=== PATIENT | male | born 1960 | race Caucasian/White ===

== ENCOUNTER → 2016-11-03 | Outpatient (REF) | payer BC ==
[~2016-11-03] MED LIST: ALEV220C2 PO; CLON-412 PO; CLON0.5T PO; CLON1TAB PO; FLUO20CA9 PO; FLUO40CA PO; GABA-283 PO; GABA300C3 PO; MIRT45TA PO; NAPR250T45 PO; NAPR375T2 PO; OLAN2.5T PO; QUET1TAB10 PO; QUET1TAB8 PO; REME30TA PO; SIMV20TA2 PO; TRAZ150T14 PO; VENL150C43 PO; VIAG100T PO; ZALE10CA PO
[2016-11-03 19:25] LABS: ALBUMIN 4.1 GM/DL (3.2-5.2); ALBUMIN/GLOBULIN RATIO 1.58 (1.00-1.93); ALKALINE PHOSPHATASE 63 U/L (45-117); ALT/SGPT 26 U/L (12-78); ANION GAP 7 MEQ/L (8-16); AST/SGOT 28 U/L (15-37); BILIRUBIN,TOTAL 0.3 MG/DL (0.2-1.0); BLOOD UREA NITROGEN 11 MG/DL (7-18); CARBON DIOXIDE LEVEL 30 MEQ/L (21-32); CHLORIDE LEVEL 108 MEQ/L (98-107); CHOLESTEROL LEVEL 162 MG/DL (<200); CREATININE FOR GFR 1.03 MG/DL (0.70-1.30); GLOMERULAR FILTRATION RATE > 60.0 (>56); GLUCOSE, FASTING 82 MG/DL (70-105); POTASSIUM SERUM 4.7 MEQ/L (3.5-5.1); SODIUM LEVEL 145 MEQ/L (136-145); TOTAL PROTEIN 6.7 GM/DL (6.4-8.2); TRIGLYCERIDES LEVEL 134 MG/DL (<150)
== END ==
LOC: M LABDRAW1 17:02
PROVIDERS: ATTEND Emergency Medicine
DX: E78.2 Mixed hyperlipidemia (principal)

== ENCOUNTER 2017-01-03 15:20 | Emergency (ER) | payer BC, OTHER ==
[~2017-01-03] VITALS: Ht 182.9 cm; Wt 77.1 kg
[~2017-01-03 15:20] MED LIST changes: +GABA-282 PO; -GABA300C3 PO
[2017-01-03] MEDS ORDERED: REXU1TAB4 PO (15:52)
[2017-01-03] MEDS ORDERED: QUET1TAB11 (15:52)
[2017-01-03] MEDS ORDERED: KLON2TAB (15:52)
[2017-01-03] MEDS ORDERED: ZALE10CA (15:52)
[2017-01-03] MEDS ORDERED: EFFE150C (15:52)
[2017-01-03] MEDS ORDERED: FLUO20CA9 (15:52)
[2017-01-03] MEDS ORDERED: NS 1,000 ML IV SCH (15:53)
[2017-01-03 16:03] LABS: BASO % 0.2 % (0.0-1.0); EOS # 0.1 K/mm3 (0.0-0.50); LARGE UNSTAINED CELL # 0.1 K/mm3 (0.0-0.4); LARGE UNSTAINED CELL % 0.6 % (0.0-4.0); LYMPH # 1.4 K/mm3 (1.5-4.5); LYMPH % 9.8 % (24.0-44.0); MEAN CORPUSCULAR HEMOGLOBIN 31.1 pg (27.0-33.0); MEAN CORPUSCULAR HGB CONC 31.8 g/dl (32.0-36.5); MEAN CORPUSCULAR VOLUME 97.6 fl (80.0-96.0); MONO # 0.9 K/mm3 (0.0-0.8); MONO % 6.2 % (0.0-5.0); NEUTROPHILS # 11.3 K/mm3 (1.8-7.7); NEUTROPHILS % 82.2 % (36.0-66.0); PLATELET COUNT, AUTOMATED 380 k/mm3 (150-450); RED CELL DISTRIBUTION WIDTH 13.9 % (11.5-14.5); WHITE BLOOD COUNT 13.8 K/mm3 (4.0-10.0)
[2017-01-03 16:35] LABS: ALBUMIN 3.3 GM/DL (3.2-5.2); ALBUMIN/GLOBULIN RATIO 0.87 (1.00-1.93); ALKALINE PHOSPHATASE 79 U/L (45-117); ALT/SGPT 28 U/L (12-78); ANION GAP 8 MEQ/L (8-16); AST/SGOT 23 U/L (15-37); BILIRUBIN,DIRECT < 0.1 MG/DL (0.0-0.2); BILIRUBIN,TOTAL 0.4 MG/DL (0.2-1.0); BLOOD UREA NITROGEN 14 MG/DL (7-18); CALCIUM LEVEL 8.2 MG/DL (8.5-10.1); CARBON DIOXIDE LEVEL 29 MEQ/L (21-32); CHLORIDE LEVEL 103 MEQ/L (98-107); GLOMERULAR FILTRATION RATE > 60.0 (>56); GLUCOSE, FASTING 132 MG/DL (70-105); POTASSIUM SERUM 3.8 MEQ/L (3.5-5.1); SODIUM LEVEL 140 MEQ/L (136-145); TOTAL PROTEIN 7.1 GM/DL (6.4-8.2)
[2017-01-03 17:49] LABS: METHADONE URINE NEGATIVE (NEGATIVE)
[2017-01-03 17:52] LABS: VENOUS BASE EXCESS 1.8 (-2.0-2.0); VENOUS O2 SATURATION 68.5 % (60.0-80.0); VENOUS PARTIAL PRESSURE O2 33.3 mmHg (30.0-50.0); VENOUS STANDARD HCO3 25.4 MEQ/L; VENOUS TOTAL CO2 29.3 MEQ/L (24.0-28.0)
[2017-01-03] MEDS ORDERED: NS 500 ML IV ONE (20:30)
--- NOTE | 2017-01-03 21:50 | ECGEPIP ---
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
[2017-01-03 23:27] VITALS: BP 107/58
== END 2017-01-03 23:43 | disposition home or self-care (01) ==
LOC: M ED 16:44
DX: F19.129 Other psychoactive substance abuse with intoxication, unspecified (principal); F33.9 Major depressive disorder, recurrent, unspecified; Z79.899 Other long term (current) drug therapy
CPT/HCPCS: 51701; 80048; 80076; 80306; 82550; 82803; 84443; 85025; 93005; 93041; 96360; 96361; 99285; G0480

== ENCOUNTER → 2017-08-30 | Outpatient (REF) | payer OTHER ==
[~2017-08-30] MED LIST changes: +EFFE150C; +FLUO20CA19; +FLUO20CA19 PO; -FLUO20CA9 PO; +KLON2TAB; +NAPR-855 PO; -NAPR375T2 PO; +QUET400T; +REXU1TAB4 PO; -TRAZ150T14 PO; +TRAZ1TAB14 PO; +ZALE10CA
[2017-08-30 13:35] LABS: BASO # 0.1 10^3/uL (0.0-0.2); BASO % 1.1 % (0.0-1.0); EOS # 0.9 10^3/uL (0.0-0.50); EOS % 9.8 % (0.0-3.0); IMMATURE GRANULOCYTE % 0.2 % (0-0); LYMPH # 2.9 10^3/uL (1.5-4.5); LYMPH % 32.4 % (24.0-44.0); MEAN CORPUSCULAR HEMOGLOBIN 32.1 pg (27.0-33.0); MEAN CORPUSCULAR HGB CONC 33.3 g/dl (32.0-36.5); MEAN CORPUSCULAR VOLUME 96.4 fl (80.0-96.0); MONO # 0.6 10^3/uL (0.0-0.8); NEUTROPHILS # 4.4 10^3/uL (1.8-7.7); NEUTROPHILS % 49.5 % (36.0-66.0); PLATELET COUNT, AUTOMATED 290 10^3/uL (150-450); RED CELL DISTRIBUTION WIDTH 13.2 % (11.5-14.5); WHITE BLOOD COUNT 8.9 10^3/uL (4.0-10.0)
[2017-08-30 14:01] LABS: ALBUMIN 3.8 GM/DL (3.2-5.2); ALBUMIN/GLOBULIN RATIO 1.19 (1.00-1.93); ALKALINE PHOSPHATASE 67 U/L (45-117); ALT/SGPT 47 U/L (12-78); ANION GAP 7 MEQ/L (8-16); AST/SGOT 32 U/L (7-37); BILIRUBIN,TOTAL 0.4 MG/DL (0.2-1.0); BLOOD UREA NITROGEN 17 MG/DL (7-18); CARBON DIOXIDE LEVEL 28 MEQ/L (21-32); CHLORIDE LEVEL 106 MEQ/L (98-107); CHOLESTEROL LEVEL 166 MG/DL (<200); CREATININE FOR GFR 0.92 MG/DL (0.70-1.30); FREE T4 1.09 NG/DL (0.76-1.46); GLOMERULAR FILTRATION RATE > 60.0 (>56); GLUCOSE, FASTING 95 MG/DL (70-105); POTASSIUM SERUM 4.6 MEQ/L (3.5-5.1); SODIUM LEVEL 141 MEQ/L (136-145); TRIGLYCERIDES LEVEL 132 MG/DL (<150)
== END ==
LOC: M LABDRAW1 10:04
PROVIDERS: ATTEND Emergency Medicine
DX: F33.2 Major depressive disorder, recurrent severe without psychotic features (principal); E78.2 Mixed hyperlipidemia

== ENCOUNTER → 2018-01-23 | Outpatient (REF) | payer OTHER ==
[2018-01-23 15:26] LABS: BASO # 0.1 10^3/uL (0.0-0.2); BASO % 1.1 % (0.0-1.0); EOS # 0.8 10^3/uL (0.0-0.50); EOS % 8.6 % (0.0-3.0); HEMATOCRIT 42.5 % (42.0-52.0); HEMOGLOBIN 14.2 g/dl (13.5-17.5); IMMATURE GRANULOCYTE % 0.4 % (0-3.0); LYMPH % 32.1 % (24.0-44.0); MEAN CORPUSCULAR HEMOGLOBIN 31.8 pg (27.0-33.0); MEAN CORPUSCULAR HGB CONC 33.4 g/dl (32.0-36.5); MEAN CORPUSCULAR VOLUME 95.3 fl (80.0-96.0); MONO # 0.6 10^3/uL (0.0-0.8); MONO % 6.4 % (0.0-5.0); NEUTROPHILS # 4.8 10^3/uL (1.8-7.7); NEUTROPHILS % 51.4 % (36.0-66.0); PLATELET COUNT, AUTOMATED 249 10^3/uL (150-450); RED BLOOD COUNT 4.46 10^6/uL (4.30-6.10); RED CELL DISTRIBUTION WIDTH 13.6 % (11.5-14.5); WHITE BLOOD COUNT 9.3 10^3/uL (4.0-10.0)
[2018-01-23 16:03] LABS: ALBUMIN 3.7 GM/DL (3.2-5.2); ALBUMIN/GLOBULIN RATIO 1.23 (1.00-1.93); ALKALINE PHOSPHATASE 77 U/L (45-117); ALT/SGPT 18 U/L (12-78); ANION GAP 6 MEQ/L (8-16); AST/SGOT 13 U/L (7-37); BILIRUBIN,TOTAL 0.3 MG/DL (0.2-1.0); BLOOD UREA NITROGEN 11 MG/DL (7-18); CALCIUM LEVEL 8.8 MG/DL (8.5-10.1); CARBON DIOXIDE LEVEL 28 MEQ/L (21-32); CHLORIDE LEVEL 111 MEQ/L (98-107); CREATININE FOR GFR 1.15 MG/DL (0.70-1.30); FREE T4 1.12 NG/DL (0.76-1.46); GLOMERULAR FILTRATION RATE > 60.0 (>56); GLUCOSE, FASTING 90 MG/DL (70-100); POTASSIUM SERUM 4.3 MEQ/L (3.5-5.1); SODIUM LEVEL 145 MEQ/L (136-145); THYROID STIMULATING HORMONE 0.854 uIU/ML (0.358-3.740); TOTAL PROTEIN 6.7 GM/DL (6.4-8.2)
[2018-01-23 16:19] LABS: TOTAL T3 68.7 NG/DL (60.0-181.0)
== END ==
LOC: M LABDRAW1 11:50
DX: F33.2 Major depressive disorder, recurrent severe without psychotic features (principal)

== ENCOUNTER → 2018-01-24 | Outpatient (REF) | payer OTHER ==
[2018-01-24 16:02] LABS: APPEARANCE, URINE CLEAR (CLEAR); BACTERIA, URINE AUTO NEGATIVE (NEGATIVE); BILIRUBIN, URINE AUTO NEGATIVE (NEGATIVE); BLOOD, URINE BLOOD 1+ (NEGATIVE); COLOR, URINE YELLOW (YELLOW); GLUCOSE, URINE (UA) AUTO NEGATIVE (NEGATIVE); KETONE, URINE AUTO NEGATIVE (NEGATIVE); LEUKOCYTE ESTERASE, URINE AUTO NEGATIVE (NEGATIVE); NITRITE, URINE AUTO NEGATIVE (NEGATIVE); PROTEIN, URINE AUTO NEGATIVE (NEGATIVE); RBC, URINE AUTO 0 /HPF (0-3); SPECIFIC GRAVITY URINE AUTO 1.004 (1.002-1.035); SQUAMOUS EPITHELIAL CELL UR AU 0 /HPF (0-6); UROBILINOGEN, URINE AUTO 0.2 mg/dL (0.0-2.0); WBC, URINE AUTO 0 /HPF (0-3)
== END ==
LOC: M LAB REF 15:53
DX: F33.2 Major depressive disorder, recurrent severe without psychotic features (principal)

== ENCOUNTER → 2018-04-29 | Outpatient (REF) | payer OTHER ==
[2018-04-29 16:38] LABS: ALBUMIN 3.9 GM/DL (3.2-5.2); ALBUMIN/GLOBULIN RATIO 1.18 (1.00-1.93); ALKALINE PHOSPHATASE 62 U/L (45-117); ALT/SGPT 20 U/L (12-78); ANION GAP 10 MEQ/L (8-16); AST/SGOT 12 U/L (7-37); BILIRUBIN,TOTAL 0.4 MG/DL (0.2-1.0); BLOOD UREA NITROGEN 9 MG/DL (7-18); CALCIUM LEVEL 9.5 MG/DL (8.5-10.1); CARBON DIOXIDE LEVEL 26 MEQ/L (21-32); CHLORIDE LEVEL 106 MEQ/L (98-107); CHOLESTEROL LEVEL 150 MG/DL (<200); CHOLESTEROL RISK RATIO 3.409 (<5); CREATININE FOR GFR 1.08 MG/DL (0.70-1.30); FREE T4 1.33 NG/DL (0.76-1.46); GLOMERULAR FILTRATION RATE > 60.0 (>56); GLUCOSE, FASTING 87 MG/DL (70-100); HDL CHOLESTEROL 44 MG/DL (>40); LDL CHOLESTEROL 81.8 MG/DL (<100); NON-HDL-C 106 MG/DL; POTASSIUM SERUM 4.2 MEQ/L (3.5-5.1); SODIUM LEVEL 142 MEQ/L (136-145); THYROID STIMULATING HORMONE 0.908 uIU/ML (0.358-3.740); TOTAL PROTEIN 7.2 GM/DL (6.4-8.2); TRIGLYCERIDES LEVEL 121 MG/DL (<150)
== END ==
LOC: M LABDRAW1 15:59
DX: E78.2 Mixed hyperlipidemia (principal); E03.9 Hypothyroidism, unspecified

== ENCOUNTER → 2018-05-20 | Outpatient (REF) | payer OTHER ==
[2018-05-23 00:07] LABS: NORTRIPTYLINE (AVENTYL) LEVEL 114 ng/mL (50-150)
== END ==
LOC: M LABDRAW1 09:37
DX: F33.3 Major depressive disorder, recurrent, severe with psychotic symptoms (principal)
CPT/HCPCS: 36415

== ENCOUNTER 2018-09-11 08:55 | Emergency (ER) | payer BC, OTHER ==
[2018-09-11] MEDS: NS 1,000 ML IV (09:41)
[2018-09-11 09:42] LABS: BASO # 0.1 10^3/uL (0.0-0.2); BASO % 0.7 % (0.0-1.0); EOS # 0.4 10^3/uL (0.0-0.50); EOS % 3.6 % (0.0-3.0); HEMATOCRIT 43.4 % (42.0-52.0); HEMOGLOBIN 15.1 g/dl (13.5-17.5); IMMATURE GRANULOCYTE % 0.4 % (0-3.0); LYMPH # 2.5 10^3/uL (1.5-4.5); LYMPH % 20.8 % (24.0-44.0); MEAN CORPUSCULAR HEMOGLOBIN 33.3 pg (27.0-33.0); MEAN CORPUSCULAR HGB CONC 34.8 g/dl (32.0-36.5); MEAN CORPUSCULAR VOLUME 95.8 fl (80.0-96.0); MONO % 8.7 % (0.0-5.0); NEUTROPHILS # 7.8 10^3/uL (1.8-7.7); NEUTROPHILS % 65.8 % (36.0-66.0); PLATELET COUNT, AUTOMATED 263 10^3/uL (150-450); RED BLOOD COUNT 4.53 10^6/uL (4.30-6.10); RED CELL DISTRIBUTION WIDTH 12.8 % (11.5-14.5); WHITE BLOOD COUNT 11.9 10^3/uL (4.0-10.0)
[2018-09-11] MEDS: ONDANSETRON 4MG/2ML VIAL (J2405) IV (09:42)
[2018-09-11] MEDS: MORPHINE 4 MG/ML 1ML VIAL/SYRINGE (J2270) IV ×2 (09:42→11:45)
[2018-09-11] MEDS ORDERED: ISOVUE-370 76% 100ML VIAL (Q9967) As Ordered (09:44)
[2018-09-11 10:00] LABS: AMORPHOUS SEDIMENT SMALL (NEGATIVE); APPEARANCE, URINE CLEAR (CLEAR); BACTERIA, URINE AUTO NEGATIVE (NEGATIVE); BILIRUBIN, URINE AUTO NEGATIVE (NEGATIVE); BLOOD, URINE BLOOD 2+ (NEGATIVE); COLOR, URINE YELLOW (YELLOW); GLUCOSE, URINE (UA) AUTO NEGATIVE (NEGATIVE); KETONE, URINE AUTO TRACE mg/dL (NEGATIVE); LEUKOCYTE ESTERASE, URINE AUTO NEGATIVE (NEGATIVE); MUCUS, URINE SMALL (NEGATIVE); NITRITE, URINE AUTO NEGATIVE (NEGATIVE); PROTEIN, URINE AUTO NEGATIVE (NEGATIVE); RBC, URINE AUTO 75 /HPF (0-3); SPECIFIC GRAVITY URINE AUTO 1.015 (1.002-1.035); SQUAMOUS EPITHELIAL CELL UR AU 0 /HPF (0-6); UROBILINOGEN, URINE AUTO 0.2 mg/dL (0.0-2.0); WBC, URINE AUTO 1 /HPF (0-3)
[2018-09-11 10:10] LABS: ALBUMIN 3.8 GM/DL (3.2-5.2); ALBUMIN/GLOBULIN RATIO 1.12 (1.00-1.93); ALKALINE PHOSPHATASE 59 U/L (45-117); ALT/SGPT 17 U/L (12-78); AMYLASE 46 U/L (25-115); ANION GAP 7 MEQ/L (8-16); AST/SGOT 13 U/L (7-37); BILIRUBIN,DIRECT 0.1 MG/DL (0.0-0.2); BILIRUBIN,TOTAL 0.6 MG/DL (0.2-1.0); BLOOD UREA NITROGEN 15 MG/DL (7-18); CALCIUM LEVEL 8.4 MG/DL (8.5-10.1); CARBON DIOXIDE LEVEL 26 MEQ/L (21-32); CHLORIDE LEVEL 106 MEQ/L (98-107); CREATININE FOR GFR 1.55 MG/DL (0.70-1.30); GLOMERULAR FILTRATION RATE 49.1 (>56); GLUCOSE, FASTING 123 MG/DL (70-100); LIPASE 77 U/L (73-393); POTASSIUM SERUM 3.6 MEQ/L (3.5-5.1); SODIUM LEVEL 139 MEQ/L (136-145); TOTAL PROTEIN 7.2 GM/DL (6.4-8.2)
[2018-09-11] MEDS: KETOROLAC 30 MG/ML VIAL (J1885) IV (12:17)
== END 2018-09-11 12:40 | disposition home or self-care (01) ==
LOC: M ED 08:55
DX: N13.30 Unspecified hydronephrosis (principal); N20.1 Calculus of ureter; R74.9 Abnormal serum enzyme level, unspecified; E78.00 Pure hypercholesterolemia, unspecified; F33.9 Major depressive disorder, recurrent, unspecified; F41.9 Anxiety disorder, unspecified; Z79.899 Other long term (current) drug therapy; F17.210 Nicotine dependence, cigarettes, uncomplicated
CPT/HCPCS: J2270

== ENCOUNTER → 2018-10-07 | Outpatient (CLI) | payer BC, OTHER ==
[~2018-10-07] MED LIST changes: +BACT800T5 PO; +BELS1TAB2 PO; -CLON0.5T PO; +CLON0.5T8 PO; -CLON1TAB PO; +CLON1TAB8 PO; -EFFE150C; +EFFE150C2; +FLOM0.4C39 PO; -GABA-282 PO; -GABA-283 PO; +GABA-843 PO; +GABA-845 PO; +IBUP-1022 PO; +KLON0.5T PO; +LEVO25TA5 PO; +LEVO50TA5 PO; -MIRT45TA PO; +MIRT45TA4 PO; +NAPR250T4 PO; -NAPR250T45 PO; +NAPR250T82 PO; +NORCOTAB PO; +NORT25CA2; +NORT25CA2 PO; +TYLE500T78 PO; +ZOFR4TAB14 PO
--- NOTE | 2018-10-16 07:01 | REP ---
Clinical: Kidney stone. Technique: Axial noncontrast images from the lung bases to the pubic symphysis with coronal and sagittal re-formations. Comparison: 09/11/2018. Findings: A 6 mm calculus is again identified in the left ureteropelvic junction causing proximal hydronephrosis. No further urinary tract calcifications or abnormalities are identified by noncontrast evaluation. Liver, spleen, pancreas, gallbladder, and bilateral adrenal glands are normal. The enteric system is without obstruction or acute inflammatory process. Scattered colonic and sigmoid diverticula noted without acute diverticulitis. Pelvis demonstrates normal bladder and age appropriate prostate/seminal vesicles. Small fat containing left inguinal hernia noted. No ascites. No adenopathy. No free air. Atherosclerotic changes to the aorta and vasculature without aneurysm. Musculoskeletal structures demonstrate degenerative changes without focal osseous abnormality. Lung bases demonstrate minimal linear scarring at the left base. Impression: 1. Continued evidence for obstructing 6 mm calculus in the left ureteropelvic junction causing proximal hydronephrosis. Remainder of the urinary tract system is normal. 2. Diverticulosis without acute diverticulitis. Electronically Signed by Frederick Bassett MD 10/16/2018 06:52 A
== END ==
LOC: M RAD 07:06
PROVIDERS: ATTEND Nurse Practitioner Family
DX: N20.0 Calculus of kidney (principal); K57.30 Diverticulosis of large intestine without perforation or abscess without bleeding

== ENCOUNTER → 2018-10-08 | Outpatient (CLI) | payer BC, OTHER ==
[2018-10-08 20:42] LABS: BLOOD UREA NITROGEN 15 MG/DL (7-18); CALCIUM LEVEL 9.8 MG/DL (8.5-10.1); CARBON DIOXIDE LEVEL 29 MEQ/L (21-32); CHLORIDE LEVEL 104 MEQ/L (98-107); CREATININE FOR GFR 1.18 MG/DL (0.70-1.30); GLOMERULAR FILTRATION RATE > 60.0 (>56); GLUCOSE, FASTING 87 MG/DL (70-100); POTASSIUM SERUM 4.5 MEQ/L (3.5-5.1); SODIUM LEVEL 140 MEQ/L (136-145)
[2018-10-08 20:51] LABS: APPEARANCE, URINE HAZY (CLEAR); BACTERIA, URINE AUTO NEGATIVE (NEGATIVE); BILIRUBIN, URINE AUTO NEGATIVE (NEGATIVE); BLOOD, URINE BLOOD 1+ (NEGATIVE); COLOR, URINE YELLOW (YELLOW); GLUCOSE, URINE (UA) AUTO NEGATIVE (NEGATIVE); KETONE, URINE AUTO NEGATIVE (NEGATIVE); LEUKOCYTE ESTERASE, URINE AUTO NEGATIVE (NEGATIVE); MUCUS, URINE SMALL (NEGATIVE); NITRITE, URINE AUTO NEGATIVE (NEGATIVE); PROTEIN, URINE AUTO NEGATIVE (NEGATIVE); RBC, URINE AUTO 15 /HPF (0-3); SPECIFIC GRAVITY URINE AUTO 1.014 (1.002-1.035); SQUAMOUS EPITHELIAL CELL UR AU 0 /HPF (0-6); UROBILINOGEN, URINE AUTO 0.2 mg/dL (0.0-2.0); WBC, URINE AUTO 0 /HPF (0-3)
[2018-10-08 21:17] LABS: HEMATOCRIT 46.1 % (42.0-52.0); HEMOGLOBIN 15.4 g/dl (13.5-17.5); MEAN CORPUSCULAR HEMOGLOBIN 32.8 pg (27.0-33.0); MEAN CORPUSCULAR HGB CONC 33.4 g/dl (32.0-36.5); MEAN CORPUSCULAR VOLUME 98.1 fl (80.0-96.0); PLATELET COUNT, AUTOMATED 302 10^3/uL (150-450); WHITE BLOOD COUNT 13.1 10^3/uL (4.0-10.0)
[2018-10-08 21:22] LABS: INR 0.94; PROTHROMBIN TIME 12.6 SECONDS (12.1-14.4)
[2018-10-08 21:23] LABS: PARTIAL THROMBOPLASTIN TIME 31.2 SECONDS (25.4-37.6)
--- NOTE | 2018-10-09 02:41 | REP ---
Clinical: Preoperative assessment. Nephrolithiasis . Comparison: 08/30/2017 . Technique: PA and lateral. Findings: The mediastinum and cardiac silhouette are normal. The lung muse are clear and without acute consolidation, effusion, or pneumothorax. The skeletal structures are intact and normal. Old healed right rib fracture. Impression: 1. No acute cardiopulmonary process. Electronically Signed by Frederick Bassett MD 10/09/2018 02:33 A
== END ==
LOC: M SMT 14:41
PROVIDERS: ATTEND Nurse Practitioner Family
DX: Z01.818 Encounter for other preprocedural examination (principal); N20.0 Calculus of kidney

== ENCOUNTER → 2018-10-10 | Outpatient (CLI) | payer BC, OTHER ==
--- NOTE | 2018-10-11 03:35 | REP ---
Clinical: Left ureteral stone. Technique: Two supine views of the abdomen and pelvis. Findings: 7 mm calcification just lateral to the left L2 transverse process consistent with the given history of ureteral stone. Further evaluation of the urinary tract system is limited due to overlying bowel gas and technique. No bowel obstruction. No organomegaly. Skeletal structures normal for age. Small phleboliths noted in the pelvis. Impression: 7 mm Proximal left ureteral calculus. Electronically Signed by Frederick Bassett MD 10/11/2018 03:28 A
== END ==
LOC: M RAD 16:19
PROVIDERS: ATTEND Urology Pediatric Urology
DX: N20.1 Calculus of ureter (principal)

== ENCOUNTER 2018-10-14 09:02 | Day surgery (SDC) | payer BC, OTHER ==
[~2018-10-14] VITALS: Ht 182.9 cm; Wt 80.6 kg
[~2018-10-14 09:02] MED LIST changes: -BACT800T5 PO; -TYLE500T78 PO
[2018-10-14] MEDS ORDERED: PIPERACILLIN/TAZOBACTAM SOD 3.375 GM in D5W MINI-BAG PLUS 50 ML IV ONE (09:15)
[2018-10-14] MEDS ORDERED: LR 1,000 ML IV ONE (09:15)
[2018-10-14] MEDS ORDERED: ONDANSETRON 4MG/2ML VIAL (J2405) As Ordered ONE (10:12)
[2018-10-14] MEDS ORDERED: METOCLOPRAMIDE INJ 10MG/2ML VIAL (J2765) As Ordered ONE (10:12)
[2018-10-14] MEDS ORDERED: LIDOCAINE 2% INJ 100 MG/5 ML SDV (FOR ANES.) As Ordered ONE (10:12)
[2018-10-14] MEDS ORDERED: PROPOFOL 200 MG/20 ML VIAL As Ordered ONE ×2 (10:12→13:08)
[2018-10-14] MEDS ORDERED: fentaNYL 100 MCG/2 ML INJECTION (J3010) As Ordered ONE ×2 (10:13→12:23)
[2018-10-14] MEDS ORDERED: MIDAZOLAM INJ 2 MG/2 ML VIAL (J2250) As Ordered ONE (10:13)
[2018-10-14] MEDS ORDERED: CONRAY-60 60% 50ML VIAL (Q9961) As Ordered ONE ×2 (11:29→13:03)
[2018-10-14] MEDS ORDERED: LIDOCAINE 2% 5ML JELLY UROJET As Ordered ONE (11:29)
--- NOTE | 2018-10-14 13:28 | ROOPDOC ---
[facility] Report Of Operation Report of Operation DATE OF PROCEDURE: 10/14/18 PREPROCEDURE DIAGNOSES:left ureteral stone (proximal) POSTPROCEDURE DIAGNOSES: same. PROCEDURE: left retrograde pyelogram, balloon dilation (12f x10cm), semi rigid ureteroscopy, laser lithotripsy, flexible ureteroscopy, stone basketing, stent placement SURGEON: Shawna Julian MD MPH INDIGO ANESTHESIA: GET (Dr. Bond). ESTIMATED BLOOD LOSS: Approximately <10 mL. COMPLICATIONS: none. REMARKS/FINDINGS: 1. left ureteral stone, proximal, sent for stone analysis 2. left ureteral clot 3. stent 7f [id number] stent 4. midline cystocele (unusual for a male) 5. normal retrograde on left reflect filling defect in the proximal ureter DESCRIPTION OF PROCEDURE: After informed consent pt was taken to the operating room where routine time out was performed for all care stakeholders, who were in agreement. The patient was placed in lithotomy position, prepped and draped and 21 f cystoscope was introduced into the bladder. The open ended ureteral catheter was placed into the left ureter retrograde revealed findings above. The motion hybrid wire was placed up the ureter into the renal pelvis. The 12f x 10cm balloon dilator was placed over the wire to distend the distal ureter for 5min. After desufflating the balloon 5min later then the semi rigid ureteroscope was introduced along side the wire up the ureter and the 0 tip nitinol stone basket was introduced once reached the proximal stone. The ureteroscope was not long enough, so it was exchanged for longer semi rigid. The stone was not central so a second motion guide wire was placed up the semi rigid scope after completing retrograde pyelogram through the scope. The ureteral access sheath was placed up the ureter over a 2nd motion wire along side of the safety wire already in place. A flexible ureteroscope to be introduce up the access sheath. A 365 laser fiber was introduced once ureteroscope reached the proximal ureteral stone. The laser was set to 10 mendoza (1j and 10hz). Once the stone was broken to smaller pieces, the nitinol 0 tip basket was used to remove stone fragments which were collected and sent for stone analysis. A new retrograde was performed using a open ended catheter and the stent 7f x 22-30cm was placed over the wire. The 21f cystoscope was used to perform repeat cystoscopy. The lower stent curl and string could be seen in the bladder and upper curl was seen with flouroscopy. Findings as above. The string was secured to the penis glans using Mastisol, steri strips and Tegaderm. The patient tolerated the procedure well and was taken to the recovery room in excellent condition. Shawna Julian MD MPH INDIGO. Shawna Julian MD Oct 14, 2018 13:28
[2018-10-14] MEDS ORDERED: PERCOCET 5MG/325MG TAB As Ordered ONE (13:34)
[2018-10-14] MEDS: PERCOCET 5MG/325MG TAB PO PRN ×2 (13:35→14:11)
[2018-10-14] MEDS ORDERED: TYLE500T78 PO (13:35)
[2018-10-14] MEDS ORDERED: BACT800T5 PO (13:35)
[2018-10-14] MEDS ORDERED: ONDANSETRON 4MG/2ML VIAL (J2405) IV PRN (14:00)
[2018-10-14] MEDS ORDERED: LR 1,000 ML IV SCH (14:00)
--- NOTE | 2018-10-14 14:10 | REP ---
Retrograde pyelogram: Three views: History: Nephrolithiasis. 38 seconds of fluoroscopy time was reported. Findings: A sequence of three last image hold fluoroscopically obtained spot radiographs of the abdomen document ureteral cannulation, contrast injection, and double pigtail stent placement. No laterality markers are visible. Electronically Signed by Jose Pace MD 10/14/2018 08:18 P
[2018-10-14 15:00] VITALS: BP 154/79
[2018-10-19 00:07] LABS: COMMENT Note: (.); Ca Ox Monohydrate 95 % (.)
== END 2018-10-14 15:05 | disposition home or self-care (01) ==
LOC: M SDC 09:02
PROVIDERS: ATTEND Urology Pediatric Urology
DX: N20.1 Calculus of ureter (principal); N28.89 Other specified disorders of kidney and ureter; N32.89 Other specified disorders of bladder; E78.00 Pure hypercholesterolemia, unspecified; R01.1 Cardiac murmur, unspecified; E04.1 Nontoxic single thyroid nodule; M12.9 Arthropathy, unspecified; F32.9 Major depressive disorder, single episode, unspecified; F41.9 Anxiety disorder, unspecified; Z79.899 Other long term (current) drug therapy; Z87.891 Personal history of nicotine dependence

== ENCOUNTER → 2018-11-04 | Outpatient (REF) | payer OTHER ==
[~2018-11-04] MED LIST changes: +BACT800T5 PO; +TYLE500T78 PO
== END ==
LOC: M LABDRAW1 15:46 → M SMT 15:46
PROVIDERS: ATTEND Nurse Practitioner Family
DX: Z12.5 Encounter for screening for malignant neoplasm of prostate (principal)
CPT/HCPCS: 36415; G0103

== ENCOUNTER → 2018-11-18 | Outpatient (CLI) | payer BC, OTHER ==
--- NOTE | 2018-11-20 07:49 | REP ---
Clinical: History of ureteral stricture. Technique: Real time euceda scale and color Doppler ultrasound examination using curved array transducer. Findings: The right kidney is normal in contour, size, echogenicity, and vascularity with normal intrarenal wave patterns and velocities; RI = 0.69. No hydronephrosis, definite nephrolithiasis, cystic or renal mass lesion appreciated. Right kidney measures 9.5 x 6.7 x 6.3 cm. The left kidney is normal in contour, size, echogenicity, and vascularity with normal intrarenal wave patterns and velocities; RI 0.65. Moderate hydronephrosis and proximal hydroureter is appreciated without obvious nephrolithiasis, cystic or renal mass lesion. Left kidney measures 10.6 x 7.0 x 6.5 cm. Bladder is normal in appearance with left ureteral jet noted during examination. The prostate gland is heterogeneous and measures 3.7 x 3.1 x 3.5 cm. Impression: 1. Moderate left-sided hydronephrosis. A left ureteral jet is identified within the bladder excluding ureteral obstruction. 2. Normal right kidney. Electronically Signed by Frederick Bassett MD 11/20/2018 07:40 A
== END ==
LOC: M RAD 14:03
PROVIDERS: ATTEND Nurse Practitioner Family
DX: N13.5 Crossing vessel and stricture of ureter without hydronephrosis (principal)

== ENCOUNTER → 2018-11-28 | Outpatient (CLI) | payer BC, OTHER ==
[~2018-11-28] MED LIST changes: +NAPR-50 PO; +NORT50CA PO; +TRAZ-163 PO; +ZOFR4TAB16 PO
[2018-11-28 13:41] LABS: HEMATOCRIT 41.7 % (42.0-52.0); HEMOGLOBIN 13.5 g/dl (13.5-17.5); MEAN CORPUSCULAR HEMOGLOBIN 31.8 pg (27.0-33.0); MEAN CORPUSCULAR HGB CONC 32.4 g/dl (32.0-36.5); MEAN CORPUSCULAR VOLUME 98.1 fl (80.0-96.0); PLATELET COUNT, AUTOMATED 496 10^3/uL (150-450); RED BLOOD COUNT 4.25 10^6/uL (4.30-6.10); WHITE BLOOD COUNT 12.2 10^3/uL (4.0-10.0)
[2018-11-28 13:45] LABS: APPEARANCE, URINE CLEAR (CLEAR); BACTERIA, URINE AUTO NEGATIVE (NEGATIVE); BILIRUBIN, URINE AUTO NEGATIVE (NEGATIVE); BLOOD, URINE BLOOD 1+ (NEGATIVE); COLOR, URINE YELLOW (YELLOW); GLUCOSE, URINE (UA) AUTO NEGATIVE (NEGATIVE); KETONE, URINE AUTO NEGATIVE (NEGATIVE); LEUKOCYTE ESTERASE, URINE AUTO NEGATIVE (NEGATIVE); MUCUS, URINE SMALL (NEGATIVE); NITRITE, URINE AUTO NEGATIVE (NEGATIVE); PROTEIN, URINE AUTO NEGATIVE (NEGATIVE); RBC, URINE AUTO 6 /HPF (0-3); SPECIFIC GRAVITY URINE AUTO 1.016 (1.002-1.035); SQUAMOUS EPITHELIAL CELL UR AU 0 /HPF (0-6); UROBILINOGEN, URINE AUTO 0.2 mg/dL (0.0-2.0); WBC, URINE AUTO 0 /HPF (0-3)
[2018-11-28 13:51] LABS: BLOOD UREA NITROGEN 14 MG/DL (7-18); CALCIUM LEVEL 8.7 MG/DL (8.5-10.1); CARBON DIOXIDE LEVEL 26 MEQ/L (21-32); CHLORIDE LEVEL 104 MEQ/L (98-107); CREATININE FOR GFR 0.95 MG/DL (0.70-1.30); GLOMERULAR FILTRATION RATE > 60.0 (>56); GLUCOSE, FASTING 113 MG/DL (70-100); POTASSIUM SERUM 4.8 MEQ/L (3.5-5.1); SODIUM LEVEL 139 MEQ/L (136-145)
[2018-11-28 13:55] LABS: PROTHROMBIN TIME 13.3 SECONDS (12.1-14.4)
[2018-11-28 13:56] LABS: PARTIAL THROMBOPLASTIN TIME 32.5 SECONDS (25.4-37.6)
== END ==
LOC: M SMT 10:14
PROVIDERS: ATTEND Nurse Practitioner Family
DX: Z01.818 Encounter for other preprocedural examination (principal); N13.5 Crossing vessel and stricture of ureter without hydronephrosis

== ENCOUNTER 2018-12-02 11:45 | Day surgery (SDC) | payer BC, OTHER ==
[~2018-12-02] VITALS: Ht 182.9 cm; Wt 80.3 kg
[2018-12-02] MEDS ORDERED: PROPOFOL 200 MG/20 ML VIAL As Ordered ONE ×2 (12:22→13:33)
[2018-12-02] MEDS ORDERED: LIDOCAINE 2% INJ 100 MG/5 ML SDV (FOR ANES.) As Ordered ONE (12:22)
[2018-12-02] MEDS ORDERED: fentaNYL 100 MCG/2 ML INJECTION (J3010) As Ordered ONE ×2 (12:23→13:52)
[2018-12-02] MEDS ORDERED: MIDAZOLAM INJ 2 MG/2 ML VIAL (J2250) As Ordered ONE (12:23)
[2018-12-02] MEDS ORDERED: CONRAY-60 60% 50ML VIAL (Q9961) As Ordered ONE (12:25)
[2018-12-02] MEDS ORDERED: BELS1TAB2 PO (12:32)
[2018-12-02] MEDS ORDERED: ceFAZolin 2 GM/D5W 50 ML IV BAG (J0690 PER 500MG) As Ordered ONE (12:33)
[2018-12-02] MEDS ORDERED: dexameTHASONE 4 MG/ML 1ML VIAL (J1100) As Ordered ONE (13:08)
[2018-12-02] MEDS ORDERED: ONDANSETRON 4MG/2ML VIAL (J2405) As Ordered ONE ×2 (13:21→13:33)
[2018-12-02] MEDS ORDERED: SUCCINYLCHOLINE 100 MG/5 ML SYRINGE (J0330) As Ordered ONE (13:33)
[2018-12-02] MEDS ORDERED: PERCOCET 5MG/325MG TAB As Ordered ONE (13:52)
[2018-12-02] MEDS: fentaNYL 100 MCG/2 ML INJECTION (J3010) IV PRN ×4 (13:55→14:10)
[2018-12-02] MEDS: PERCOCET 5MG/325MG TAB PO PRN ×2 (13:55→14:25)
[2018-12-02] MEDS ORDERED: LR 1,000 ML IV SCH (14:00)
[2018-12-02] MEDS ORDERED: PERCOCET 5MG/325MG TAB PO PRN (14:00)
[2018-12-02] MEDS ORDERED: ONDANSETRON 4MG/2ML VIAL (J2405) IV PRN (14:00)
--- NOTE | 2018-12-02 14:09 | REP ---
C-ARM VIEWS DURING LEFT RETROGRADE PYELOGRAM: Five C-arm views are performed. Wire is seen in the left ureter. Contrast partially opacifies the left ureter and pelvicalyceal system. 17 seconds fluoroscopy time utilized. Electronically Signed by Josh Nash MD 12/03/2018 10:09 A
[2018-12-02 14:50] VITALS: BP 122/82
[2018-12-02] MEDS ORDERED: KETOROLAC 30 MG/ML VIAL (J1885) As Ordered ONE (15:01)
[2018-12-02] MEDS ORDERED: KETOROLAC 30 MG/ML VIAL (J1885) IV ONE (15:15)
--- NOTE | 2018-12-03 07:54 | RO ---
DATE OF PROCEDURE: 12/02/2018 PREPROCEDURE DIAGNOSIS: Left ureteral obstruction. POSTPROCEDURE DIAGNOSIS: Left ureteral obstruction. PROCEDURE: Cystoscopy, left ureteroscopy, left retrograde pyelogram with intraoperative interpretation of images. SURGEON: Dr. Adams Lu JAVA SOFTWARE: None. ANESTHESIA: General. OPERATIVE INDICATIONS: This is a 58-year-old male who underwent a cystoscopy with left ureteroscopy and removal of stone as well as balloon dilation a little over a month ago. After his stent was removed an ultrasound was performed and notable for persistent moderate left hydronephrosis raising the concern for persistent left ureteral stricture. He ws brought to the operating room today to investigate this. DESCRIPTION OF PROCEDURE: Patient was brought to the operating room, and general anesthesia was induced. Prophylactic antibiotics were infused. He was then placed in the dorsal lithotomy position and prepped and draped in the usual sterile fashion. A rigid cystoscope was inserted into the urethral meatus and advanced into the bladder. Once within the bladder, a guidewire was advanced up the left collecting system. I then went up the left ureter with a short semirigid ureteroscope and examined the ureter all the way up to the ureteropelvic junction and no areas of narrowing were seen. A retrograde pyelogram was performed and was notable for left mild left hydroureteronephrosis and no extravasation. At this point, I withdrew the ureteroscope and examined the ureteral orifice for efflux. I did this for several minutes. The ureteral orifice effluxed very easily and contrast washed out of the left collecting system within a matter of a minute or two. This demonstrated that the left kidney was not obstructed. I therefore did not do a balloon dilatation or endopyelotomy. I also did not leave a stent because of this. At this point, the wires were removed and the bladder emptied of all fluids. This marked the conclusion of the procedure. The patient was then taken out of dorsal lithotomy position, awakened from anesthesia and transferred from the recovery room in stable condition. ESTIMATED BLOOD LOSS: Less than 5 mL. COMPLICATIONS: None. SPECIMENS: None. PLAN: The patient will followup in the clinic for a postoperative visit. VERONICA
== END 2018-12-02 15:37 | disposition home or self-care (01) ==
LOC: M SDC 11:45
PROVIDERS: ATTEND Urology
DX: N13.5 Crossing vessel and stricture of ureter without hydronephrosis (principal); E78.5 Hyperlipidemia, unspecified; R01.1 Cardiac murmur, unspecified; E04.1 Nontoxic single thyroid nodule; F32.9 Major depressive disorder, single episode, unspecified; F41.9 Anxiety disorder, unspecified; Z87.891 Personal history of nicotine dependence; Z79.899 Other long term (current) drug therapy
CPT/HCPCS: 52005; 74420; C1769; J0330; J0690; J1100; J1885; J2250; J2405; J3010; Q9961

== ENCOUNTER → 2019-01-24 | Outpatient (REF) | payer BC, OTHER ==
[~2019-01-24] MED LIST changes: +HYDR-3715 PO; -NAPR-50 PO; +NAPR-837 PO; -NORCOTAB PO; -OLAN2.5T PO; +OLAN2.5T25 PO
[2019-01-24 14:40] LABS: ALBUMIN 4.2 GM/DL (3.2-5.2); ALT/SGPT 21 U/L (12-78); BILIRUBIN,TOTAL 0.4 MG/DL (0.2-1.0); BLOOD UREA NITROGEN 28 MG/DL (7-18); CALCIUM LEVEL 8.7 MG/DL (8.5-10.1); CARBON DIOXIDE LEVEL 28 MEQ/L (21-32); CHLORIDE LEVEL 110 MEQ/L (98-107); CHOLESTEROL LEVEL 191 MG/DL (<200); CHOLESTEROL RISK RATIO 4.152 (<5); CREATININE FOR GFR 1.12 MG/DL (0.70-1.30); FREE T4 1.23 NG/DL (0.76-1.46); GLOMERULAR FILTRATION RATE > 60.0 (>56); GLUCOSE, FASTING 103 MG/DL (70-100); HDL CHOLESTEROL 46 MG/DL (>40); LDL CHOLESTEROL 108 MG/DL (<100); NON-HDL-C 145 MG/DL; POTASSIUM SERUM 4.4 MEQ/L (3.5-5.1); SODIUM LEVEL 144 MEQ/L (136-145); TOTAL PROTEIN 6.8 GM/DL (6.4-8.2); TRIGLYCERIDES LEVEL 183 MG/DL (<150)
== END ==
LOC: M LABDRAW1 10:56
PROVIDERS: ATTEND Physician Assistant Medical
DX: E78.2 Mixed hyperlipidemia (principal); E03.9 Hypothyroidism, unspecified

== ENCOUNTER 2019-04-11 20:25 | Emergency (ER) | payer BC, OTHER ==
[~2019-04-11] VITALS: Ht 182.9 cm; Wt 78.2 kg
[2019-04-11 20:58] LABS: BASO # 0.1 10^3/uL (0.0-0.2); BASO % 0.9 % (0.0-1.0); EOS # 0.4 10^3/uL (0.0-0.50); EOS % 3.4 % (0.0-3.0); HEMATOCRIT 42.5 % (42.0-52.0); HEMOGLOBIN 14.6 g/dl (13.5-17.5); LYMPH % 34.7 % (24.0-44.0); MEAN CORPUSCULAR HEMOGLOBIN 33.3 pg (27.0-33.0); MEAN CORPUSCULAR HGB CONC 34.4 g/dl (32.0-36.5); MONO # 0.7 10^3/uL (0.0-0.8); MONO % 5.9 % (0.0-5.0); NEUTROPHILS # 6.3 10^3/uL (1.8-7.7); NEUTROPHILS % 54.8 % (36.0-66.0); PLATELET COUNT, AUTOMATED 309 10^3/uL (150-450); RED BLOOD COUNT 4.38 10^6/uL (4.30-6.10); WHITE BLOOD COUNT 11.5 10^3/uL (4.0-10.0)
[2019-04-11 21:09] LABS: INR 0.96; PROTHROMBIN TIME 12.5 SECONDS (11.8-14.0)
[2019-04-11 21:10] LABS: PARTIAL THROMBOPLASTIN TIME 26.4 SECONDS (25.0-38.4)
--- NOTE | 2019-04-11 21:12 | REPVR ---
EXAM: CT Head Without Contrast EXAM DATE/TIME: 04/11/2019 8:46 PM CLINICAL HISTORY: 58 years old, male; Injury or trauma; Fall; Initial encounter; Blunt trauma (contusions or hematomas) TECHNIQUE: Imaging protocol: Axial computed tomography images of the head without contrast. Radiation optimization: All CT scans at this facility use at least one of these dose optimization techniques: automated exposure control; mA and/or kV adjustment per patient size (includes targeted exams where dose is matched to clinical indication); or iterative reconstruction. COMPARISON: No relevant prior studies available. FINDINGS: Brain: Patchy areas of hypoattenuation in the periventricular and subcortical white matter, consistent with chronic small vessel ischemic disease. Focal, well-circumscribed hypodensities in the basal ganglia, consistent with chronic lacunar infarcts. No CT evidence of acute intracranial hemorrhage or acute territorial infarction. No significant mass effect or midline shift. Basal cisterns patent. Ventricles: Prominence of the cortical sulci, cisterns and ventricular system, consistent with cerebral and cerebellar volume loss. Bones/joints: No acute osseous abnormality. Sinuses: Mild to moderate mucosal thickening of the ethmoid air cells and paranasal sinuses. Mastoid air cells: Grossly unremarkable. Soft tissues: Grossly unremarkable. Vasculature: Calcific atherosclerotic disease in the cavernous internal carotid arteries. IMPRESSION: 1. No CT evidence of acute intracranial pathology. 2. Additional findings, as above. Electronically signed by: Conor Dumont On 04/11/2019 21:12:28 PM
[2019-04-11 21:23] LABS: ALBUMIN 4.2 GM/DL (3.2-5.2); ALT/SGPT 29 U/L (12-78); BILIRUBIN,DIRECT < 0.1 MG/DL (0.0-0.2); BILIRUBIN,TOTAL 0.2 MG/DL (0.2-1.0); BLOOD UREA NITROGEN 11 MG/DL (7-18); CALCIUM LEVEL 8.8 MG/DL (8.5-10.1); CARBON DIOXIDE LEVEL 22 MEQ/L (21-32); CHLORIDE LEVEL 107 MEQ/L (98-107); CK-MB VALUE MASS 1.3 NG/ML (<3.6); CPK CREATINE PHOSPHOKINASE 112 U/L (39-308); CREATININE FOR GFR 1.12 MG/DL (0.70-1.30); GLOMERULAR FILTRATION RATE > 60.0 (>56); GLUCOSE, FASTING 103 MG/DL (70-100); MB/CK RELATIVE INDEX 1.16 (< OR =4); NT-PRO BNP 245 PG/ML (<125); POTASSIUM SERUM 3.8 MEQ/L (3.5-5.1); SODIUM LEVEL 141 MEQ/L (136-145); TOTAL PROTEIN 7.4 GM/DL (6.4-8.2); TROPONIN I < 0.02 NG/ML (< 0.10)
--- NOTE | 2019-04-11 21:25 | REPVR ---
EXAM: CT Cervical Spine Without Contrast EXAM DATE/TIME: 04/11/2019 8:46 PM CLINICAL HISTORY: 58 years old, male; Injury or trauma; Fall; Initial encounter; Blunt trauma TECHNIQUE: Imaging protocol: Axial computed tomography images of the cervical spine without contrast. Coronal and sagittal reformatted images were created and reviewed. Radiation optimization: All CT scans at this facility use at least one of these dose optimization techniques: automated exposure control; mA and/or kV adjustment per patient size (includes targeted exams where dose is matched to clinical indication); or iterative reconstruction. COMPARISON: No relevant prior studies available. FINDINGS: Vertebrae: Normal cervical lordosis. Dextroscoliosis. Mild retrolisthesis of C4 on C5. Alignment otherwise anatomic. No CT evidence of acute fracture, dislocation or subluxation. Vertebral body heights maintained. Discs/Spinal canal/Neural foramina: Mild multilevel degenerative changes, characterized by disc space narrowing, osteophytosis and uncovertebral and facet joint hypertrophy. Mild multilevel spinal canal and neural foraminal narrowing. Soft tissues: Grossly unremarkable. Lungs: Biapical pleural thickening and paraseptal emphysematous change. IMPRESSION: 1. No CT evidence of acute cervical spine traumatic injury. 2. Additional findings, as above. Electronically signed by: Conor Dumont On 04/11/2019 21:24:53 PM
[2019-04-11 21:41] LABS: ETHYL ALCOHOL (ETHANOL) 0.076 % (0.000-0.010)
[2019-04-11] MEDS ORDERED: NS 1,000 ML IV SCH (22:00)
[2019-04-11] MEDS: METOPROLOL 5 MG/5 ML VIAL IV SCH ×3 (22:05→22:10)
[2019-04-11] MEDS ORDERED: ASPIRIN 81 MG CHEW TABLET PO ONE (22:30)
[2019-04-11 22:34] LABS: MAGNESIUM LEVEL 2.1 MG/DL (1.8-2.4)
[2019-04-11] MEDS ORDERED: DIGO0.25 PO (23:13)
[2019-04-11] MEDS ORDERED: ASPI81CH33 PO (23:13)
[2019-04-11] MEDS ORDERED: DIGOXIN 0.25 MG TAB PO ONE (23:15)
[2019-04-12 03:22] LABS: CK-MB VALUE MASS 1.2 NG/ML (<3.6); CPK CREATINE PHOSPHOKINASE 145 U/L (39-308); MB/CK RELATIVE INDEX 0.83 (< OR =4); TROPONIN I < 0.02 NG/ML (< 0.10)
[2019-04-12 03:47] VITALS: BP 114/68
--- NOTE | 2019-04-12 09:22 | REP ---
Chest x-ray: Single view. History: Chest pain. Comparison study: October 2018. Findings: There is an old healed rib fracture on the right. EKG monitoring electrodes are seen. The lungs are well inflated and clear. Heart size is normal. The aorta is calcific and a little tortuous. There is mild biapical pleuroparenchymal fibrosis. No infiltrate is seen. Impression: No acute disease. Electronically Signed by Jose Pace MD 04/12/2019 09:14 A
--- NOTE | 2019-04-14 16:23 | ECGEPIP ---
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
--- NOTE | 2019-04-14 16:28 | ECGEPIP ---
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
--- NOTE | 2019-04-14 16:33 | ECGEPIP ---
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
== END 2019-04-12 04:39 | disposition home or self-care (01) ==
LOC: M ED 20:25
DX: I48.91 Unspecified atrial fibrillation (principal); I45.10 Unspecified right bundle-branch block; F33.9 Major depressive disorder, recurrent, unspecified; F41.9 Anxiety disorder, unspecified; E78.00 Pure hypercholesterolemia, unspecified; Z79.899 Other long term (current) drug therapy; Z79.82 Long term (current) use of aspirin; Z87.891 Personal history of nicotine dependence
CPT/HCPCS: 36415; 70450; 71045; 72125; 80048; 80076; 82550; 82553; 83735; 83880; 84439; 84443; 84484; 85025; 85610; 85730; 93005; 93041; 94760; 99285; G0480

== ENCOUNTER → 2020-01-05 | Outpatient (REF) | payer OTHER, BC ==
[~2020-01-05] MED LIST changes: +ASPI81CH33 PO; +CLON0.5T2 PO; -CLON0.5T8 PO; +DIGO0.253 PO; -FLUO20CA19; -FLUO20CA19 PO; +FLUO20CA22; +FLUO20CA22 PO; +QUET100T2 PO; -QUET1TAB8 PO; -SIMV20TA2 PO; +SIMV20TA22 PO; -TRAZ-163 PO; +TRAZ-257 PO
[2020-01-05 12:31] LABS: BASO # 0.1 10^3/uL (0.0-0.2); BASO % 1.2 % (0.0-1.0); EOS # 0.6 10^3/uL (0.0-0.5); EOS % 5.3 % (0.0-3.0); HEMATOCRIT 47.2 % (42.0-52.0); HEMOGLOBIN 15.8 g/dl (13.5-17.5); LYMPH # 3.2 10^3/uL (1.5-5.0); LYMPH % 28.3 % (24.0-44.0); MEAN CORPUSCULAR HEMOGLOBIN 32.8 pg (27.0-33.0); MEAN CORPUSCULAR HGB CONC 33.5 g/dl (32.0-36.5); MEAN CORPUSCULAR VOLUME 98.1 fl (80.0-96.0); MONO # 0.6 10^3/uL (0.0-0.8); MONO % 5.6 % (0.0-5.0); NEUTROPHILS # 6.6 10^3/uL (1.5-8.5); NEUTROPHILS % 59.2 % (36.0-66.0); PLATELET COUNT, AUTOMATED 341 10^3/uL (150-450); RED BLOOD COUNT 4.81 10^6/uL (4.30-6.10); WHITE BLOOD COUNT 11.2 10^3/uL (4.0-10.0)
[2020-01-05 12:43] LABS: ALBUMIN 4.2 GM/DL (3.2-5.2); ALT/SGPT 21 U/L (12-78); BILIRUBIN,TOTAL 0.4 MG/DL (0.2-1.0); BLOOD UREA NITROGEN 13 MG/DL (7-18); CALCIUM LEVEL 9.6 MG/DL (8.8-10.2); CARBON DIOXIDE LEVEL 29 MEQ/L (21-32); CHLORIDE LEVEL 107 MEQ/L (98-107); CHOLESTEROL LEVEL 192 MG/DL (<200); CREATININE FOR GFR 1.21 MG/DL (0.70-1.30); GLOMERULAR FILTRATION RATE > 60.0 (>49); GLUCOSE, FASTING 95 MG/DL (70-100); HDL CHOLESTEROL 48 MG/DL (>40); LDL CHOLESTEROL 117 MG/DL (<100); NON-HDL-C 144 MG/DL; POTASSIUM SERUM 4.8 MEQ/L (3.5-5.1); SODIUM LEVEL 140 MEQ/L (136-145); TOTAL PROTEIN 7.4 GM/DL (6.4-8.2); TRIGLYCERIDES LEVEL 136 MG/DL (<150)
== END ==
LOC: M LABDRAW1 10:41
PROVIDERS: ATTEND Nurse Practitioner Family
DX: J06.9 Acute upper respiratory infection, unspecified (principal)

== ENCOUNTER → 2020-01-05 | Outpatient (REF) | payer OTHER, BC ==
[2020-01-05 12:31] LABS: HEMOGLOBIN 16.3 g/dl (13.5-17.5); MEAN CORPUSCULAR HEMOGLOBIN 33.2 pg (27.0-33.0); MEAN CORPUSCULAR VOLUME 97.8 fl (80.0-96.0); PLATELET COUNT, AUTOMATED 343 10^3/uL (150-450); RED BLOOD COUNT 4.91 10^6/uL (4.30-6.10); WHITE BLOOD COUNT 11.4 10^3/uL (4.0-10.0)
[2020-01-05 12:44] LABS: ALBUMIN 3.9 GM/DL (3.2-5.2); ALT/SGPT 19 U/L (12-78); BILIRUBIN,TOTAL 0.6 MG/DL (0.2-1.0); BLOOD UREA NITROGEN 13 MG/DL (7-18); CALCIUM LEVEL 9.3 MG/DL (8.8-10.2); CARBON DIOXIDE LEVEL 28 MEQ/L (21-32); CHLORIDE LEVEL 107 MEQ/L (98-107); CREATININE FOR GFR 1.18 MG/DL (0.70-1.30); FREE T4 1.03 NG/DL (0.76-1.46); GLOMERULAR FILTRATION RATE > 60.0 (>49); GLUCOSE, FASTING 101 MG/DL (70-100); LITHIUM LEVEL < 0.20 MEQ/L (0.60-1.20); POTASSIUM SERUM 4.8 MEQ/L (3.5-5.1); SODIUM LEVEL 139 MEQ/L (136-145); TOTAL PROTEIN 7.1 GM/DL (6.4-8.2)
== END ==
LOC: M LABDRAW1 10:39
PROVIDERS: ATTEND Nurse Practitioner Psychiatric/Mental Health
DX: F40.01 Agoraphobia with panic disorder (principal)

== ENCOUNTER → 2020-03-08 | Outpatient (CLI) | payer BC, OTHER ==
--- NOTE | 2020-03-09 07:08 | REP ---
Clinical: Lung screening. History smoking. Comparison: None Technique: Axial low-dose noncontrast images from the thoracic inlet to the upper abdomen using lung screening technique. Findings: The lung muse demonstrate mild primarily by apical and minimal basilar scarring. 2 mm perifissural nodule along the minor fissure (image 55) is identified along with a 7 mm non solid density in the right upper lobe (image 49). No consolidation, significant nodule or mass lesion is appreciated. No pleural effusion/reaction or pneumothorax. Tracheobronchial tree is patent. Mediastinum demonstrates mild atherosclerotic changes of the coronary arteries without cardiomegaly. Impression: Lung-RADS category II. Management recommendations include low dose 12-month follow-up CT. Electronically Signed by Frederick Bassett MD 03/09/2020 06:59 A
== END ==
LOC: M RAD 07:48
PROVIDERS: ATTEND Family Medicine
DX: Z12.2 Encounter for screening for malignant neoplasm of respiratory organs (principal); Z87.891 Personal history of nicotine dependence; R91.8 Other nonspecific abnormal finding of lung field; I25.10 Atherosclerotic heart disease of native coronary artery without angina pectoris

== ENCOUNTER 2021-02-27 12:19 | Emergency (ER) | payer MEDICARE, OTHER, BC ==
[~2021-02-27] VITALS: Ht 182.9 cm; Wt 70.5 kg
[~2021-02-27 12:19] MED LIST changes: +GABA-282 PO; +GABA-283 PO; -GABA-843 PO; -GABA-845 PO; +MIRT-60 PO; +NAPR-849 PO; -NAPR250T4 PO; -QUET1TAB10 PO; +QUET300T2 PO; -REME30TA PO
[2021-02-27] MEDS ORDERED: PREDOPD (12:46)
[2021-02-27] MEDS ORDERED: BUSP30TA (12:46)
[2021-02-27] MEDS ORDERED: MIRT1TAB (12:46)
[2021-02-27] MEDS ORDERED: FLUO40CA (12:46)
[2021-02-27] MEDS ORDERED: GENT0.3S29 (12:46)
[2021-02-27] MEDS ORDERED: LITH300C (12:46)
--- NOTE | 2021-02-27 13:34 | REP ---
INDICATION: trauma COMPARISON: 04/11/2019 TECHNIQUE: Axial noncontrast images from the skull base to the thoracic inlet with coronal reformations. This CT examination was performed using the following dose reduction techniques: Automated exposure control, adjustment of mA and/or kv according to the patient's size, and use of iterative reconstruction technique. FINDINGS: Atrophy with periventricular leukomalacia and microvascular ischemic changes are appreciated. The ventricles and sulci are symmetric. Nash-white differentiation is maintained. There is no evidence for acute intracranial hemorrhage, mass/mass effect, pathology or infarction. No extra-axial fluid collection. Calvarium is intact. There is partial opacification of the ethmoid, maxillary, and frontal sinuses suggesting acute/chronic sinusitis. The left globe is gas filled with small dependent fluid level which requires correlation with prior procedure and less likely trauma. IMPRESSION: 1. Atrophy and microvascular ischemic changes. No acute intracranial hemorrhage, infarction, or mass/mass effect. 2. Presumed acute/chronic sinusitis. 3. Gas-filled left globe should be correlated with surgical history and less likely traumatic in nature. <Electronically signed by Frederick Bassett > 02/27/21 [id number]
--- NOTE | 2021-02-27 13:36 | REP ---
INDICATION: trauma COMPARISON: None. TECHNIQUE: Axial noncontrast images from the skull base to the thoracic inlet with coronal and sagittal re-formations This CT examination was performed using the following dose reduction techniques: Automated exposure control, adjustment of mA and/or kv according to the patient's size, and use of iterative reconstruction technique. FINDINGS: Moderate multilevel degenerative changes are appreciated. Alignment and lordosis maintained. No acute fracture/compression injury or subluxation. Posterior elements and spinous processes are intact. Spinal canal is patent. Paravertebral soft tissues are within normal limits.. IMPRESSION: No evidence for acute pathology or trauma/injury. <Electronically signed by Frederick Bassett > 02/27/21 [id number]
--- NOTE | 2021-02-27 13:41 | REP ---
INDICATION: trauma COMPARISON: None. TECHNIQUE: Axial noncontrast images through the facial bones to include the mandible with coronal and sagittal re-formations. FINDINGS: The osseous structures are intact and there is no evidence for fracture or dislocation. Specifically, the bilateral zygomatic arches, and mandible including bilateral temporomandibular joints appear normal and symmetric. Nasal bones are relatively normal although very subtle nondisplaced left nasal bone fracture cannot definitively be excluded. There is moderate opacification involving the ethmoid, maxillary, sphenoid and frontal sinuses with fluid level most suggestive of acute/chronic sinusitis although occult injury cannot definitively be excluded. The left globe is gas filled with small dependent fluid level likely related to recent ophthalmic procedure and less likely trauma. Correlation is required. IMPRESSION: 1. No definite acute fracture or dislocation. Very subtle nondisplaced left nasal bone fracture cannot definitively be excluded. 2. Presumed acute on chronic sinusitis. 3. Gas within the left globe likely related to recent ophthalmic procedure and less likely trauma. <Electronically signed by Frederick Bassett > 02/27/21 [id number]
--- NOTE | 2021-02-27 13:47 | REP ---
INDICATION: trauma COMPARISON: None. TECHNIQUE: AP, lateral, bilateral oblique views right wrist. FINDINGS: There is an oblique nondisplaced fracture extending through the lateral aspect of the radial metaphysis towards the articular surface medially. Overlying soft tissue swelling noted. Carpal bones and visualized metacarpal bones are age-appropriate. IMPRESSION: Nondisplaced oblique fracture of the distal radial metaphysis extending towards the articular surface. <Electronically signed by Frederick Bassett > 02/27/21 [id number]
[2021-02-27] MEDS ORDERED: KETOROLAC TROMETHAMINE 10 MG TAB PO ONE (14:25)
[2021-02-27] MEDS ORDERED: BACITRACIN OINTMENT 30GM TUBE TOP PRN (15:20)
[2021-02-27] MEDS ORDERED: PERC5TAB12 PO (15:26)
[2021-02-27 15:37] VITALS: BP 141/77
--- NOTE | 2021-02-28 08:17 | ED PDOC ---
Post-Departure Follow-Up radiology report faxed to Alina Peterson Sarah MD February 28, 2021 08:17
== END 2021-02-27 15:55 | disposition home or self-care (01) ==
LOC: M ED 12:19
DX: S52.514A Nondisplaced fracture of right radial styloid process, initial encounter for closed fracture (principal); S02.2XXA Fracture of nasal bones, initial encounter for closed fracture; V84.5XXA Driver of special agricultural vehicle injured in nontraffic accident, initial encounter; Y92.009 Unspecified place in unspecified non-institutional (private) residence as the place of occurrence of the external cause; Y93.H2 Activity, gardening and landscaping; Y99.9 Unspecified external cause status

== ENCOUNTER → 2021-04-28 | Outpatient (CLI) | payer BC, OTHER, MEDICARE ==
[~2021-04-28] MED LIST changes: +BUSP30TA; +FLUO40CA; +GENT0.3S29; +LITH300C; +MIRT1TAB; +PERC5TAB12 PO; +PREDOPD; -QUET400T; +QUET400T2
[2021-04-28 18:10] LABS: ALBUMIN 3.9 GM/DL (3.2-5.2); ALT/SGPT 32 U/L (12-78); BILIRUBIN,TOTAL 0.4 MG/DL (0.2-1.0); BLOOD UREA NITROGEN 12 MG/DL (7-18); CALCIUM LEVEL 8.6 MG/DL (8.8-10.2); CARBON DIOXIDE LEVEL 29 MEQ/L (21-32); CHLORIDE LEVEL 106 MEQ/L (98-107); CHOLESTEROL LEVEL 173 MG/DL (<200); CHOLESTEROL RISK RATIO 3.604 (<5); CREATININE FOR GFR 0.92 MG/DL (0.70-1.30); FREE T4 0.83 NG/DL (0.76-1.46); GLOMERULAR FILTRATION RATE > 60.0 (>49); GLUCOSE, FASTING 122 MG/DL (70-100); HDL CHOLESTEROL 48 MG/DL (>40); LDL CHOLESTEROL 79 MG/DL (<100); NON-HDL-C 125 MG/DL; SODIUM LEVEL 139 MEQ/L (136-145); TOTAL PROTEIN 6.5 GM/DL (6.4-8.2); TRIGLYCERIDES LEVEL 228 MG/DL (<150)
== END ==
LOC: M PLALAB 14:46
PROVIDERS: ATTEND Nurse Practitioner Family
DX: E78.2 Mixed hyperlipidemia (principal); E03.9 Hypothyroidism, unspecified

== ENCOUNTER → 2021-07-18 | Outpatient (CLI) | payer BC, OTHER ==
--- NOTE | 2021-07-20 05:58 | REP ---
INDICATION: NICOTINE DEPNED COMPARISON: 03/08/2020 TECHNIQUE: Axial noncontrast images from the thoracic inlet to the upper abdomen using low-dose lung screening technique (LDCT). FINDINGS: Relatively mild emphysematous changes are noted including few scattered bullae and early bronchiectasis. The previously identified small 2 mm perifissural density adjacent to the right minor fissure as well as the 7 mm non solid density in the posterior right upper lobe a both resolved and may have represented small areas of transient atelectasis. No acute consolidation, suspicious nodule or mass. Minimal scattered chronic fibrolinear changes noted. Mediastinum is grossly stable/normal. IMPRESSION: 1. Lung-RADS category 1. 2. Previously identified small densities have resolved and likely represented transient atelectasis. No acute process. 3. Management recommendations include annual low-dose CT surveillance. <Electronically signed by Frederick Bassett > 07/20/21 [id number]
== END ==
LOC: M RAD 13:31
PROVIDERS: ATTEND Nurse Practitioner Family
DX: Z12.2 Encounter for screening for malignant neoplasm of respiratory organs (principal); Z87.891 Personal history of nicotine dependence

== ENCOUNTER → 2021-10-03 | Outpatient (CLI) | payer BC, OTHER ==
[~2021-10-03] MED LIST changes: -BUSP30TA; +BUSP30TA PO; -MIRT1TAB; +MIRT1TAB PO
== END ==
LOC: M LABSMTC 11:15
PROVIDERS: ATTEND Anesthesiology
DX: Z20.828 Contact with and (suspected) exposure to other viral communicable diseases (principal); Z11.52 Encounter for screening for COVID-19

== ENCOUNTER → 2021-11-05 | Outpatient (CLI) | payer BC, OTHER ==
[~2021-11-05] MED LIST changes: +CLON0.5T2
== END ==
LOC: M LABSMTC 11:56
PROVIDERS: ATTEND Anesthesiology
DX: Z01.818 Encounter for other preprocedural examination (principal); Z11.52 Encounter for screening for COVID-19

== ENCOUNTER 2021-11-10 06:45 | Day surgery (SDC) | payer BC, OTHER ==
[~2021-11-10] VITALS: Ht 182.9 cm; Wt 73.5 kg
[~2021-11-10 06:45] MED LIST changes: +CYCLOPENTOLATE 1% OPHTH SOLN 2 ML BTL OD SCH; +FLURBIPROFEN 0.03% OPHTH SOLN 2.5 ML OD SCH; +LIDOCAINE 1% SDV 5ML VIAL As Ordered ONE; +MAXITROL OPHTH SUSP 5 ML As Ordered ONE; +PHENYLEPHRINE 2.5% OPHTH SOL 2ML OD SCH
[2021-11-10] MEDS ORDERED: LR 1,000 ML IV SCH (07:00)
[2021-11-10] MEDS: TETRACAINE 0.5% OPHTH SOLN 4ML OD SCH ×2 (07:11→07:13)
[2021-11-10] MEDS ORDERED: MIDAZOLAM INJ 2MG/2ML VIAL (J2250 PER 1MG) As Ordered ONE (07:19)
[2021-11-10] MEDS ORDERED: fentaNYL 100 MCG/2 ML INJECTION As Ordered ONE (07:19)
[2021-11-10 09:30] VITALS: BP 121/78
== END 2021-11-10 09:40 | disposition home or self-care (01) ==
LOC: M SDC 06:45
PROVIDERS: ATTEND Ophthalmology
DX: H25.9 Unspecified age-related cataract (principal); E78.2 Mixed hyperlipidemia; F17.200 Nicotine dependence, unspecified, uncomplicated; K76.9 Liver disease, unspecified; F33.2 Major depressive disorder, recurrent severe without psychotic features; E78.00 Pure hypercholesterolemia, unspecified; M19.90 Unspecified osteoarthritis, unspecified site; Z79.899 Other long term (current) drug therapy
CPT/HCPCS: 66984; J2250; J3010

== ENCOUNTER 2022-05-09 12:49 | Inpatient (IN) | payer MEDICARE, BC, OTHER ==
[~2022-05-09] VITALS: Ht 182.9 cm; Wt 76.4 kg
[~2022-05-09 12:49] MED LIST changes: -CYCLOPENTOLATE 1% OPHTH SOLN 2 ML BTL OD SCH; -FLURBIPROFEN 0.03% OPHTH SOLN 2.5 ML OD SCH; -LIDOCAINE 1% SDV 5ML VIAL As Ordered ONE; -MAXITROL OPHTH SUSP 5 ML As Ordered ONE; -PHENYLEPHRINE 2.5% OPHTH SOL 2ML OD SCH
[2022-05-09] MEDS ORDERED: FLUO40CA PO (13:03)
[2022-05-09 13:33] LABS: BASO # 0.1 10^3/uL (0.0-0.2); BASO % 1.1 % (0.0-1.0); EOS # 0.4 10^3/uL (0.0-0.5); EOS % 4.6 % (0.0-3.0); HEMATOCRIT 41.4 % (42.0-52.0); LYMPH # 2.2 10^3/uL (1.5-5.0); MEAN CORPUSCULAR HEMOGLOBIN 32.8 pg (27.0-33.0); MEAN CORPUSCULAR HGB CONC 33.8 g/dl (32.0-36.5); MONO # 0.8 10^3/uL (0.0-0.8); NEUTROPHILS # 5.7 10^3/uL (1.5-8.5); NEUTROPHILS % 60.5 % (36.0-66.0); PLATELET COUNT, AUTOMATED 388 10^3/uL (150-450); RED BLOOD COUNT 4.27 10^6/uL (4.30-6.10); WHITE BLOOD COUNT 9.3 10^3/uL (4.0-10.0)
[2022-05-09 13:45] LABS: INR 0.95; PROTHROMBIN TIME 13.1 SECONDS (12.7-14.5)
[2022-05-09] MEDS ORDERED: ISOVUE-370 76% 100ML VIAL As Ordered ONE (13:57)
[2022-05-09 14:03] LABS: CK-MB VALUE MASS < 1.0 NG/ML (<3.6); CPK CREATINE PHOSPHOKINASE 90 U/L (39-308); MB/CK RELATIVE INDEX 1.11 (< OR =4)
[2022-05-09] MEDS ORDERED: CLON1TAB8 PO (15:49)
[2022-05-09] MEDS ORDERED: ALEV220T22 PO (15:49)
[2022-05-09] MEDS ORDERED: HOME MED LIST COMPLETE! XX SCH (15:50)
[2022-05-09] MEDS ORDERED: VITMTA PO (15:50)
[2022-05-09] MEDS ORDERED: clonazePAM 1 MG TAB PO PRN (17:15)
[2022-05-09] MEDS ORDERED: ACETAMINOPHEN TAB 650MG DOSE (2X325MG) PO PRN (17:15)
[2022-05-09] MEDS ORDERED: NICOTINE 21MG/24HR 1 EA TRANSDERMAL TD ONE (17:20)
[2022-05-09] MEDS ORDERED: PILL CUTTER 1 EACH XX PRN (17:25)
[2022-05-09 17:40] LABS: RSV AMPLIFICATION NEGATIVE (NEGATIVE)
[2022-05-09 18:38] LABS: C REACTIVE PROTEIN QUANTITATIV 1.32 MG/DL (0.00-0.30); CHOLESTEROL RISK RATIO 5.638 (<5)
[2022-05-09 18:54] LABS: HEMOGLOBIN A1c 5.4 %
[2022-05-09] MEDS ORDERED: SIMVASTATIN 20 MG TAB PO SCH (21:00)
[2022-05-09] MEDS ORDERED: MIRTAZAPINE 15 MG TAB PO SCH (21:00)
[2022-05-09] MEDS: valACYclovir HCL 500 MG TAB PO SCH (21:24)
[2022-05-09] MEDS: LACRILUBE (AKWA TEARS) OPHTH OINT 3.5 GM OS SCH (21:25)
[2022-05-09] MEDS: busPIRone 10 MG TAB PO SCH (21:25)
[2022-05-10] VITALS: BP 162/93
[2022-05-10 04:00] VITALS: BP 141/78
[2022-05-10 05:17] LABS: HEMATOCRIT 39.1 % (42.0-52.0); HEMOGLOBIN 13.5 g/dl (13.5-17.5); MEAN CORPUSCULAR HEMOGLOBIN 33.8 pg (27.0-33.0); MEAN CORPUSCULAR HGB CONC 34.5 g/dl (32.0-36.5); MEAN CORPUSCULAR VOLUME 97.8 fl (80.0-96.0); PLATELET COUNT, AUTOMATED 345 10^3/uL (150-450); WHITE BLOOD COUNT 8.8 10^3/uL (4.0-10.0)
[2022-05-10 05:49] LABS: ALBUMIN 2.6 GM/DL (3.2-5.2); ALT/SGPT 30 U/L (12-78); BILIRUBIN,TOTAL 0.2 MG/DL (0.2-1.0); BLOOD UREA NITROGEN 9 MG/DL (7-18); CALCIUM LEVEL 8.3 MG/DL (8.8-10.2); CARBON DIOXIDE LEVEL 24 MEQ/L (21-32); CHLORIDE LEVEL 114 MEQ/L (98-107); CREATININE FOR GFR 0.88 MG/DL (0.70-1.30); GLOMERULAR FILTRATION RATE > 60.0 (>49); GLUCOSE, FASTING 89 MG/DL (70-100); POTASSIUM SERUM 3.7 MEQ/L (3.5-5.1); SODIUM LEVEL 143 MEQ/L (136-145); TOTAL PROTEIN 6.3 GM/DL (6.4-8.2)
[2022-05-10] MEDS: valACYclovir HCL 500 MG TAB PO SCH (06:27)
[2022-05-10] MEDS ORDERED: PRED20TA PO (07:22)
[2022-05-10] MEDS ORDERED: VALA500T5 PO (07:22)
[2022-05-10] MEDS ORDERED: AKWA1OIN OS (07:22)
[2022-05-10 07:33] VITALS: BP 134/77
[2022-05-10] MEDS: LACRILUBE (AKWA TEARS) OPHTH OINT 3.5 GM OS SCH (09:00)
[2022-05-10] MEDS ORDERED: MULTIVITAMINS/MINERALS THERAP 1 TAB PO SCH (09:00)
[2022-05-10] MEDS ORDERED: predniSONE 20 MG TAB PO SCH (09:00)
[2022-05-10] MEDS ORDERED: FLUoxetine 20MG CAP PO SCH (09:00)
[2022-05-10] MEDS: busPIRone 10 MG TAB PO SCH (09:07)
== END 2022-05-10 11:05 | disposition home or self-care (01) | DRG 74 ==
LOC: M ED 12:49 → M ED INP 15:50 → ENRESERV 18:21 → M PCU 19:45
PROVIDERS: ADMIT Internal Medicine; ATTEND Internal Medicine
DX: G51.0 Bell's palsy (principal); I48.91 Unspecified atrial fibrillation; F41.9 Anxiety disorder, unspecified; F32.9 Major depressive disorder, single episode, unspecified; F17.200 Nicotine dependence, unspecified, uncomplicated; E78.5 Hyperlipidemia, unspecified; Z79.899 Other long term (current) drug therapy; Z87.442 Personal history of urinary calculi

== ENCOUNTER → 2022-06-22 | Outpatient (CLI) | payer MEDICARE, BC, OTHER ==
[~2022-06-22] MED LIST changes: +AKWA1OIN OS; +ALEV220T22 PO; +PRED20TA PO; +VALA500T5 PO; +VITMTA PO
[2022-06-22 14:42] LABS: CHOLESTEROL RISK RATIO 2.784 (<5)
== END ==
LOC: M PLALAB 12:08
PROVIDERS: ATTEND Nurse Practitioner Family
DX: E78.2 Mixed hyperlipidemia (principal)

== ENCOUNTER → 2022-07-27 | Outpatient (CLI) | payer MEDICARE, BC, OTHER | LOC: M RAD 14:35 | PROVIDERS: ATTEND Nurse Practitioner Family | DX: Z12.2 Encounter for screening for malignant neoplasm of respiratory organs (principal); Z87.891 Personal history of nicotine dependence ==

== ENCOUNTER → 2023-07-27 | Outpatient (CLI) | payer MEDICARE, BC, OTHER ==
[~2023-07-27] MED LIST changes: +CLON-952; -GABA-283 PO; +GABA-284 PO; -KLON2TAB
[2023-07-27 11:33] LABS: ALBUMIN 3.8 G/DL (3.2-5.2); ALKALINE PHOSPHATASE 65 U/L (46-116); ALT/SGPT 36 U/L (7.0-40); AST/SGOT 29 U/L (<34); BILIRUBIN,TOTAL 0.5 MG/DL (0.3-1.2); BLOOD UREA NITROGEN 15 MG/DL (9-23); CALCIUM LEVEL 9.4 MG/DL (8.3-10.6); CARBON DIOXIDE LEVEL 29 MMOL/L (20-31); CHLORIDE LEVEL 106 MMOL/L (98-107); CHOLESTEROL LEVEL 206 MG/DL (<200); CHOLESTEROL RISK RATIO 3.42 (<5); CREATININE FOR GFR 0.95 MG/DL (0.70-1.30); GLOMERULAR FILTRATION RATE > 60.0 (>49); GLUCOSE, FASTING 98 MG/DL (74-106); HDL CHOLESTEROL 60.2 MG/DL (>40); LDL CHOLESTEROL 117.6 MG/DL (<100); NON-HDL-C 145.8 MG/DL; POTASSIUM SERUM 4.5 MMOL/L (3.5-5.1); SODIUM LEVEL 141 MMOL/L (136-145); TOTAL PROTEIN 6.6 G/DL (5.7-8.2); TRIGLYCERIDES LEVEL 141 MG/DL (<150)
== END ==
LOC: M PLALAB 08:38
PROVIDERS: ATTEND Nurse Practitioner Family
DX: E78.2 Mixed hyperlipidemia (principal)

== ENCOUNTER → 2023-07-30 | Outpatient (CLI) | payer MEDICARE, BC, OTHER | LOC: M RAD 09:48 | PROVIDERS: ATTEND Nurse Practitioner Family | DX: Z12.2 Encounter for screening for malignant neoplasm of respiratory organs (principal); Z87.891 Personal history of nicotine dependence ==

== ENCOUNTER → 2024-03-18 | Outpatient (CLI) | payer MEDICARE, OTHER ==
[~2024-03-18] MED LIST changes: -EFFE150C2; +EFFE150C3; +FLUO-365; +FLUO-365 PO; -FLUO20CA22; -FLUO20CA22 PO; -GENT0.3S29; +GENT0.3S34; -KLON0.5T PO; +KLON0.5T8 PO; -MIRT-60 PO; +MIRT-89 PO
== END ==
LOC: M OUTALCOH 07:45
PROVIDERS: ATTEND Psychiatry & Neurology Psychiatry
DX: F10.10 Alcohol abuse, uncomplicated (principal)

== ENCOUNTER 2024-03-24 12:50 | Outpatient (RCR) | payer MEDICARE, OTHER | END 2024-03-30 | LOC: M OUTALCOH 12:50 | PROVIDERS: ATTEND Psychiatry & Neurology Psychiatry | DX: F10.10 Alcohol abuse, uncomplicated (principal) ==

== ENCOUNTER → 2025-09-28 | Outpatient (CLI) | payer MEDICARE, OTHER ==
[~2025-09-28] MED LIST changes: -FLOM0.4C39 PO; +GABA-1172 PO; -GABA-282 PO; -IBUP-1022 PO; +IBUP600T42 PO; -OLAN2.5T25 PO; +OLAN2.5T53 PO; +TAMS-18 PO
== END ==
LOC: M PLAIMG 14:04
PROVIDERS: ATTEND Nurse Practitioner Family
DX: J20.9 Acute bronchitis, unspecified (principal)